=== PATIENT | male | born 1990 | race Caucasian/White ===

== ENCOUNTER → 2017-04-16 | Outpatient (CLI) | payer BC ==
--- NOTE | 2017-04-16 17:26 | RADIOLOGY REPORT (SQ) ---
EXAM DESCRIPTION: CHEST PA/LATERAL COMPLETED DATE/TIME: 04/16/2017 3:29 pm REASON FOR STUDY: HEMOPTYSIS R04.2 HEMOPTYSIS COMPARISON: None. NUMBER OF VIEWS: Two view. TECHNIQUE: Frontal and lateral radiographic views of the chest acquired. LIMITATIONS: None. FINDINGS: LUNGS AND PLEURA: No opacities, masses or pneumothorax. No pleural effusion. Attenuated bl ood vessels and flattened nicholas-diaphragms. MEDIASTINUM AND HILAR STRUCTURES: No masses. No contour abnormalities. HEART AND VASCULAR STRUCTURES: Heart normal in size and contour. No evidence for failure. BONES: No acute findings. HARDWARE: None in the chest. OTHER: No other significant finding. IMPRESSION: COPD. NO ACUTE RADIOGRAPHIC FINDING IN THE CHEST. TECHNICAL DOCUMENTATION: JOB ID: [id number] [employer]- All Rights Reserved
== END ==
LOC: OD 15:13
PROVIDERS: ATTEND Family Medicine
DX: R04.2 Hemoptysis (principal)
CPT/HCPCS: 71020

== ENCOUNTER 2017-10-07 18:56 | Emergency (ER) | payer BC ==
[2017-10-07 19:11] LABS: ABSOLUTE BASOPHILS # (AUTO) 0.1 10^3/uL (0.0-0.2); ABSOLUTE EOSINOPHILS # (AUTO) 0.2 10^3/uL (0.0-0.6); ABSOLUTE LYMPHOCYTES (AUTO) 4.6 10^3/uL (0.5-4.7); ABSOLUTE MONOCYTES (AUTO) 0.8 10^3/uL (0.1-1.4); ABSOLUTE NEUT (AUTO) 8.1 10^3/uL (1.7-8.2); BASOPHILS % (AUTO) 0.6 % (0-2); EOSINOPHILS % (AUTO) 1.4 % (0-6); HEMATOCRIT 45.2 % (37.9-51.0); HEMOGLOBIN 15.4 g/dL (13.5-17.0); LYMPHOCYTES % (AUTO) 33.3 % (13-45); MEAN CORPUSCULAR HEMOGLOBIN 32.1 pg (27.0-33.4); MEAN CORPUSCULAR VOLUME 94 fl (80-97); PLATELET COUNT 212 10^3/uL (150-450); RED CELL DISTRIBUTION WIDTH 12.8 % (11.5-14.0); SEGMENTED NEUTROPHILS % (AUTO) 58.7 % (42-78); TOTAL CELLS COUNTED % (AUTO) 100 %; WHITE BLOOD COUNT 13.8 10^3/uL (4.0-10.5)
[2017-10-07 19:34] LABS: ALANINE AMINOTRANSFERASE 24 U/L (21-72); ALCOHOL 107 mg/dL (NONE DETECTED); ALKALINE PHOSPHATASE 52 U/L (38-126); ANION GAP 15 (5-19); ASPARTATE AMINO TRANSFERASE 28 U/L (17-59); BILIRUBIN,DIRECT 0.2 mg/dL (0.0-0.4); BILIRUBIN,TOTAL 0.2 mg/dL (0.2-1.3); BLOOD UREA NITROGEN 14 mg/dL (7-20); CALCIUM 9.2 mg/dL (8.4-10.2); CARBON DIOXIDE 24 mmol/L (22-30); CHLORIDE 108 mmol/L (98-107); GLUCOSE 109 mg/dL (75-110); POTASSIUM 4.4 mmol/L (3.6-5.0); SODIUM 146.7 mmol/L (137-145); TOTAL PROTEIN 7.5 g/dL (6.3-8.2)
[2017-10-07 19:35] LABS: ACETAMINOPHEN < 10 ug/mL (10-30); SALICYLATE < 1.0 mg/dL (2.0-20.0)
[2017-10-07] MEDS ORDERED: IBUPROFEN 600 MG TABLET PO ONE (21:14)
--- NOTE | 2017-10-07 21:19 | ER Document Report ---
ED General - General Chief Complaint: Overdose Stated Complaint: POSSIBLE OVERDOSE Mode of Arrival: Ambulatory Information source: Patient TRAVEL OUTSIDE OF THE [place] IN LAST 30 DAYS: No - HPI Notes: 27-year-old with past medical history of opioid abuse presented today for evaluation of heroin overdose. Patient was found by his family members at home not breathing. Patient was given Narcan by EMS with improvement of his respiratory rate as well as overdose. Patient reported that he has been drinking today as well as use some Xanax. Patient is awake now, oriented, no complaints. Patient has mild chest wall tenderness in the area where he had sternal rub. Patient denies any suicidal or homicidal ideations. Patient reports unintentional overdose. - Related Data Allergies/Adverse Reactions: No Known Allergies Allergy (Verified 09/19/13 10:51) Past Medical History - Social History Smoking Status: Current Every Day Smoker Chew tobacco use (# tins/day): No Frequency of alcohol use: Social Drug Abuse: Heroin, Marijuana Family History: CAD, Hyperlipidemia, Hypertension Patient has suicidal ideation: No Patient has homicidal ideation: No Renal/ Medical History: Reports: Hx Hydrocele, Hx Varicocele. Denies: Hx Peritoneal Dialysis GI Medical History: Reports: Hx Gastroesophageal Reflux Disease Musculoskeltal Medical History: Reports Hx Musculoskeletal Deformity, Reports Hx Musculoskeletal Trauma Psychiatric Medical History: Reports: Hx Anxiety Traumatic Medical History: Reports: Hx Fractures - Patient bumped Past Surgical History: Reports: Hx Orthopedic Surgery - Hip - Immunizations Immunizations up to date: Yes Hx Diphtheria, Pertussis, Tetanus Vaccination: Yes Review of Systems - Review of Systems Notes: REVIEW OF SYSTEMS: CONSTITUTIONAL: -fevers, -chills EENT: -eye pain, -difficulty swallowing, -nasal congestion CARDIOVASCULAR: + Muscular skeletal chest pain, -syncope. RESPIRATORY: +cough, -SOB GASTROINTESTINAL: -abdominal pain, -nausea, -vomiting, -diarrhea GENITOURINARY: -dysuria, -hematuria MUSCULOSKELETAL: -back pain, -neck pain SKIN: -rash or skin lesions. HEMATOLOGIC: -easy bruising or bleeding. LYMPHATIC: -swollen, enlarged glands. NEUROLOGICAL: -altered mental status or loss of consciousness, -headache, - neurologic symptoms PSYCHIATRIC: -anxiety, -depression. ALL OTHER SYSTEMS REVIEWED AND NEGATIVE. Physical Exam - Vital signs Vitals: Resp BP Pulse Ox 10 L 124/87 H 92 10/07/17 19:20 10/07/17 19:20 10/07/17 19:20 - Notes Notes: PHYSICAL EXAMINATION: GENERAL: Well-appearing, well-nourished and in no acute distress. HEAD: Atraumatic, normocephalic. EYES: Pinpoint, extraocular movements intact, sclera anicteric, conjunctiva are normal. ENT: nares patent, oropharynx clear without exudates. Moist mucous membranes. NECK: Normal range of motion, supple without lymphadenopathy LUNGS: Breath sounds clear to auscultation bilaterally and equal. No wheezes rales or rhonchi, no bradypnea HEART: Regular rate and rhythm without murmurs ABDOMEN: Soft, nontender, normoactive bowel sounds. No guarding, no rebound. No masses appreciated. EXTREMITIES: Normal range of motion, no pitting or edema. No cyanosis. NEUROLOGICAL: Cranial nerves grossly intact. Normal speech, normal gait. Normal sensory and motor exams. PSYCH: Normal mood, normal affect. SKIN: Warm, Dry, normal turgor, no rashes or lesions noted. Course - Re-evaluation Re-evalutation: 10/07/17 21:17 Patient is here for evaluation of heroin overdose, unintentional Patient responded well to Narcan, no respiratory distress Likely etiology of her symptoms is unintentional overdose given that patient was also using alcohol and benzos today Patient denies any suicidal or homicidal ideations, patient has stable and has family support at bedside Normal lab work Patient was provided with resources for rehab as well as detox Discharge home - Vital Signs Vital signs: Temp Pulse Resp BP Pulse Ox 10 L 124/87 H 92 10/07/17 19:20 10/07/17 19:20 10/07/17 19:20 - Laboratory Result Diagrams: 10/07/17 19:00 10/07/17 19:00 Laboratory results interpreted by me: 10/07/17 10/07/17 19:00 19:00 WBC 13.8 H Sodium 146.7 H Chloride 108 H Salicylates < 1.0 L Acetaminophen < 10 L Discharge - Discharge Condition: Stable Disposition: HOME, SELF-CARE Admitting Provider: Detox and rehab Instructions: Instructions for Home Care Following a Drug Overdose ([facility])
[2017-10-07 21:29] VITALS: BP 114/74
--- NOTE | 2017-10-07 22:11 | EKG REPORT ---
SEVERITY:- ABNORMAL ECG - SINUS RHYTHM NONSPECIFIC T ABNORMALITIES, ANT-LAT LEADS : Confirmed by: Sandeep Doll MD 07-Oct-2017 22:10:55
== END 2017-10-07 21:29 | disposition home or self-care (01) ==
LOC: ER 18:56
DX: T40.2X1A Poisoning by other opioids, accidental (unintentional), initial encounter (principal); T50.901A Poisoning by unspecified drugs, medicaments and biological substances, accidental (unintentional), initial encounter; F19.10 Other psychoactive substance abuse, uncomplicated; F10.10 Alcohol abuse, uncomplicated; F17.200 Nicotine dependence, unspecified, uncomplicated
CPT/HCPCS: 36415; 80053; 80307; 85025; 93005; 93010; 99285

== ENCOUNTER 2017-10-17 02:08 | Emergency (ER) | payer BC ==
[2017-10-17 02:15] VITALS: BP 133/87
--- NOTE | 2017-10-17 03:41 | ER Document Report ---
HPI - HPI Patient complains to provider of: Painful swallowing, rib pain Pain Level: Denies Context: Patient is a 27-year-old male that comes emergency department for chief complaint of pain in his neck, he states that he felt pain and almost a spasm all he was trying to eat beans and [employer] as a midnight snack prior to arrival. He also states his chest is been sore for about a week ever since his brother did chest compressions on him after he had an overdose that he was seen here in the emergency department for. He denies difficulty breathing, he states he never got a chest x-ray and he wants one. He denies fever or chills, current difficulty swallowing, shortness of breath. - REPRODUCTIVE Reproductive: DENIES: : Past Medical History - General Information source: Patient - Social History Smoking Status: Never Smoker Frequency of alcohol use: None Drug Abuse: None Lives with: Family Family History: CAD, Hyperlipidemia, Hypertension Renal/ Medical History: Reports: Hx Hydrocele, Hx Varicocele. Denies: Hx Peritoneal Dialysis GI Medical History: Reports: Hx Gastroesophageal Reflux Disease Musculoskeltal Medical History: Reports Hx Musculoskeletal Deformity, Reports Hx Musculoskeletal Trauma Psychiatric Medical History: Reports: Hx Anxiety Traumatic Medical History: Reports: Hx Fractures - Patient bumped Past Surgical History: Reports: Hx Orthopedic Surgery - Hip - Immunizations Immunizations up to date: Yes Hx Diphtheria, Pertussis, Tetanus Vaccination: Yes Vertical Provider Document - CONSTITUTIONAL General Appearance: WD/WN, No Apparent Distress - INFECTION CONTROL TRAVEL OUTSIDE OF THE [place] IN LAST 30 DAYS: No - HEENT HEENT: Atraumatic, Normal ENT Exam - Normal oral, pharyngeal, and external neck exam., Normocephalic - NECK Neck: Normal Inspection - RESPIRATORY Respiratory: Breath Sounds Normal, No Respiratory Distress. negative: Chest Non -Tender - Mild generalized tenderness over the anterior chest wall, no crepitus , no signs of trauma, no significant pain, Wheezing O2 Sat by Pulse Oximetry: 98 - CARDIOVASCULAR Cardiovascular: Regular Rate, Regular Rhythm - GI/ABDOMEN Gastrointestinal: Abdomen Soft, Abdomen Non-Tender - BACK Back: Normal Inspection - MUSCULOSKELETAL/EXTREMETIES Musculoskeletal/Extremeties: MAEW, FROM, Non-Tender - NEURO Level of Consciousness: Awake, Alert, Appropriate - DERM Integumentary: Warm, Dry, No Rash Course - Re-evaluation Re-evalutation: Unremarkable chest x-ray. Unremarkable oral, pharyngeal, neck exam. No evidence of infection, obstruction, pneumothorax, or concerning acute abnormality. Discussed with patient, he states satisfaction with this. Discussed follow-up and return precautions. Patient states understanding and agreement. - Vital Signs Vital signs: Temp Pulse Resp BP Pulse Ox 98.6 F 90 18 133/87 H 98 10/17/17 02:14 10/17/17 02:14 10/17/17 02:14 10/17/17 02:14 10/17/17 02:14 Discharge - Discharge Clinical Impression: Throat symptom, Rib pain Condition: Stable Disposition: HOME, SELF-CARE Additional Instructions: The exact cause of your symptoms tonight is uncertain. Your evaluation, chest x-ray, and vital signs do not show any concerning abnormality. Follow-up with primary care. Return for any concerning symptoms including difficulty breathing, vomiting, fever, inability to swallow, or any other concerning symptoms.
--- NOTE | 2017-10-17 03:52 | RADIOLOGY REPORT (SQ) ---
EXAM DESCRIPTION: CHEST PA/LAT CLINICAL HISTORY: pain, had compressions done COMPARISON: None. FINDINGS: Frontal and lateral views of the chest. The cardiomediastinal silhouette has normal size and contour. No consolidation, pneumothorax, or pleural effusion. No displaced rib fractures identified. Upper abdominal soft tissues are unremarkable. IMPRESSION: 1. No acute pulmonary process identified.
== END 2017-10-17 04:33 | disposition home or self-care (01) ==
LOC: ER 02:08
DX: R07.81 Pleurodynia (principal); R09.89 Other specified symptoms and signs involving the circulatory and respiratory systems; M54.2 Cervicalgia
CPT/HCPCS: 71046; 99283